=== PATIENT | male | born 1990 | race Two or more races ===

== ENCOUNTER 2017-04-28 10:14 | Emergency (ER) | payer OTHER ==
[~2017-04-28] VITALS: Ht 170.2 cm; Wt 72.6 kg
[~2017-04-28 10:14] MED LIST: MYLANTA30 M1 PO; OMEPRAZOLE20 M3 ORAL; TYLENOL650 MG/20. ORAL; ZOFRAN4 MG/5 ML ORAL
[2017-04-28 10:29] VITALS: BP 100/60
--- NOTE | 2017-04-28 11:08 | Emergency Room Report ---
History of Present Illness General Chief Complaint: Flu Like Symptoms Source: Patient Present Illness HPI Patient with sore throat, slight cough, body aches which began last night. [place] feverish. No NVD, dysuria, chest pain, rashes. Slight headache. Pain rated at 8/10, aching and diffuse, constant. No medicine taken. No with flu shot. No co-morbidities. Allergies: Coded Allergies: No Known Allergies (Unverified , 05/28/15) Patient History Past Medical History: see triage record Social History: Reports: smoking Social History Narrative at home Reviewed Nursing Documentation: PMH: Agreed, PSxH: Agreed Nursing Documentation-PMH Hx Gastrointestinal Problems: Yes - H. Pylori Review of Systems All Other Systems: negative except mentioned in HPI Physical Exam Vital Signs Date Time Temp Pulse Resp B/P (MAP) Pulse Ox O2 Delivery O2 Flow Rate FiO2 04/28/17 10:17 98.1 84 20 97/61 99 Room Air Sp02 EP Interpretation: reviewed, normal General Appearance: well appearing, no apparent distress Head: normocephalic, atraumatic Eyes: bilateral eye normal inspection, bilateral eye PERRL ENT: hearing grossly normal, normal voice, TMs + canals normal, pharyngeal erythema Neck: full range of motion, supple Respiratory: no respiratory distress, speaking full sentences Cardiovascular #1: regular rate, rhythm Cardiovascular #2: 2+ radial (R) Gastrointestinal: normal inspection, normal bowel sounds, non tender, scaphoid Musculoskeletal: back normal, digits/nails normal, normal range of motion Neurologic: alert, oriented x3, normal gait, grossly normal Psychiatric: mood/affect normal Skin: no rash Medical Decision Making Diagnostic Impression: Primary Impression: Influenza ER Course Patient with URI sy. DDx: influenza, viral syndrome, strep amongst others. Not toxic. Exam against strep. Clinically dx of influenza. Not dehydrated. Not toxic. Start Tamiflu and symptomatic treatment. Treated with tylenol here. Patient stable for outpatient observation and treatment. Last Vital Signs Date Time Temp Pulse Resp B/P (MAP) Pulse Ox O2 Delivery O2 Flow Rate FiO2 04/28/17 11:41 98.1 88 20 100/60 99 Room Air Status: improved Disposition: HOME, SELF-CARE Condition: Improved Scripts Acetaminophen (Tylenol) 325 Mg Tablet 650 MG ORAL Q6H Y for Prn Pain/Headache/Temp > 101, #20 TAB 0 Refills Prov: Shana,Remi M.D. 04/28/17 Oseltamivir Phosphate (Tamiflu) 75 Mg Capsule 75 MG ORAL TWICE A DAY, #10 CAP Prov: Remi Saldana M.D. 04/28/17 Ondansetron Odt* (ZOFRAN ODT*) 4 Mg Tab.rapdis 4 MG ORAL Q8H Y for Nausea & Vomiting, #6 TAB 0 Refills Prov: Remi Saldana M.D. 04/28/17 Remi Saldana M.D. Apr 28, 2017 11:08
[2017-04-28] MEDS ORDERED: ZOFRAN ODT4 MG ORAL (11:10)
[2017-04-28] MEDS ORDERED: TAMIFLU75 MG ORAL (11:10)
[2017-04-28] MEDS ORDERED: TYLENOL325 MG ORAL (11:10)
[2017-04-28 11:41] VITALS: BP 100/60
== END 2017-04-28 11:41 | disposition home or self-care (01) ==
LOC: EMR 11:11
DX: J11.1 Influenza due to unidentified influenza virus with other respiratory manifestations (principal); F17.200 Nicotine dependence, unspecified, uncomplicated
CPT/HCPCS: 99283

== ENCOUNTER 2018-01-03 00:47 | Emergency (ER) | payer MEDICAID, OTHER ==
[~2018-01-03] VITALS: Ht 170.2 cm; Wt 52.2 kg
[~2018-01-03 00:47] MED LIST changes: +TAMIFLU75 MG ORAL; +TYLENOL325 MG ORAL; +ZOFRAN ODT4 MG ORAL
[2018-01-03 02:00] VITALS: BP 103/56
--- NOTE | 2018-01-03 02:42 | Emergency Room Report ---
History of Present Illness General Chief Complaint: Sore Throat Source: Patient Present Illness [facility] This patient is here for generalized malaise, weakness, nausea, myalgias, emesis x one. He also wanted to tell me about irritation on his penis and irritation at anus. Not sexually active >three months. no fever, no abd pain, no cp, no sob. PMH: gi Allergies: Coded Allergies: No Known Allergies (Unverified , 05/28/15) Nursing Documentation-PMH Past Medical History: No Stated History Hx Gastrointestinal Problems: Yes - H. Pylori Review of Systems Constitutional: Reports: see HPI, malaise, weakness Eye: Reports: no symptoms ENT: Reports: no symptoms Respiratory: Reports: no symptoms Cardiovascular: Reports: no symptoms Gastrointestinal: Reports: no symptoms Genitourinary: Reports: no symptoms Musculoskeletal: Reports: no symptoms Skin: Reports: no symptoms Psychiatric: Reports: no symptoms Neurological: Reports: no symptoms Endocrine: Reports: no symptoms Hematologic/Lymphatic: Reports: no symptoms Allergic: Reports: no symptoms All Other Systems: negative except mentioned in HPI Physical Exam Vital Signs Date Time Temp Pulse Resp B/P (MAP) Pulse Ox O2 Delivery O2 Flow Rate FiO2 01/03/18 01:23 99.2 97 15 110/68 98 Room Air 99.1 Sp02 EP Interpretation: reviewed, normal General Appearance: normal inspection, well appearing, no apparent distress, alert, GCS 15, non-toxic, thin Head: normocephalic, atraumatic Eyes: bilateral eye normal inspection, bilateral eye PERRL, bilateral eye EOMI ENT: normal ENT inspection, hearing grossly normal, normal pharynx, no angioedema, normal voice, moist mucus membranes Neck: normal inspection, full range of motion, supple, no meningismus, no bony tend Respiratory: normal inspection, lungs clear, normal breath sounds, no rhonchi, no respiratory distress, no retraction, no accessory muscle use, no wheezing Cardiovascular #1: normal inspection, regular rate, rhythm, no edema Gastrointestinal: normal inspection, normal bowel sounds, non tender, soft, no mass, non-distended Rectal: other - tiny skin tag at 12 Genitourinary: other - mild abraded skin penis c/w dry masturbation Musculoskeletal: gait/station normal, normal range of motion Neurologic: normal inspection, alert, oriented x3, responsive, motor strength/ tone normal Psychiatric: normal inspection, judgement/insight normal, memory normal Suicide Risk Assessment: Suicidal Ideation: No Had intent to initiate attempt: No Pt's plan for suicide attempt: No Has means to complete attempt: No Skin: normal inspection, normal color, no rash, warm/dry Medical Decision Making Diagnostic Impression: Primary Impression: Sore throat ER Course mostly pt. needed reassurance Last Vital Signs Date Time Temp Pulse Resp B/P (MAP) Pulse Ox O2 Delivery O2 Flow Rate FiO2 01/03/18 01:23 99.2 97 15 110/68 98 Room Air 99.1 Disposition: HOME, SELF-CARE Referrals: NON PHYSICIAN (PCP) Patient Instructions: Sore Throat Rob Shin M.D. Jan 03, 2018 02:42
[2018-01-03 03:34] VITALS: BP 104/60
== END 2018-01-03 03:20 | disposition home or self-care (01) ==
LOC: EMR 02:32
DX: J02.9 Acute pharyngitis, unspecified (principal)
CPT/HCPCS: 99282

== ENCOUNTER 2018-04-25 05:31 | Emergency (ER) | payer MEDICAID, OTHER ==
[~2018-04-25] VITALS: Ht 170.2 cm; Wt 54.4 kg
[2018-04-25] MEDS ORDERED: NKM (05:36)
--- NOTE | 2018-04-25 05:40 | NUR ---
ER Nurse Note: Pt came from home c/o n/v since 04/24. Pt stated he took 8 tequila shots yesterday and felt sick since. Pt a&ox4, VSS, no signs of distress. Pt is pallor, warm to touch, no active vomiting. Bowel sounds present; pt stated "stomach feels empty". ERMD at pt side; will continue to montior.
[2018-04-25] MEDS ORDERED: Metoclopramide 10mg/2ml Inj IVP ONE (05:45)
[2018-04-25] MEDS ORDERED: DiphenhydrAMINE 50mg/ml Inj IVP ONE (05:45)
--- NOTE | 2018-04-25 05:45 | Emergency Room Report ---
History of Present Illness General Chief Complaint: Alcohol Intoxication Source: Patient (Paolo Crowe DO) Present Illness HPI Patient presents with reports of drinking too much he reports that he has had increased nausea vomiting over the night now Feels increased burning and discomfort to the epigastric region Denies any chest pain or shortness of breath Denies any lower abdominal pain Denies any diarrhea Denies any fevers however he felt some mild chills (Paolo Crowe DO) Allergies: Coded Allergies: No Known Allergies (Unverified , 05/28/15) Patient History Past Medical History: see triage record Pertinent Family History: none Reviewed Nursing Documentation: PMH: Agreed; PSxH: Agreed (Paolo Crowe DO) Nursing Documentation-PMH Past Medical History: No Stated History Hx Gastrointestinal Problems: Yes - H. Pylori (Paolo Crowe DO) Review of Systems All Other Systems: negative except mentioned in HPI (Paolo Crowe DO) Physical Exam Vital Signs Date Time Temp Pulse Resp B/P (MAP) Pulse Ox O2 Delivery O2 Flow Rate FiO2 04/25/18 05:33 98.2 69 20 125/64 98 Room Air Sp02 EP Interpretation: reviewed, normal General Appearance: no apparent distress, thin Head: normocephalic, atraumatic Eyes: bilateral eye PERRL, bilateral eye EOMI ENT: hearing grossly normal, normal pharynx Neck: supple Respiratory: lungs clear Cardiovascular #1: regular rate, rhythm Gastrointestinal: non tender, soft Genitourinary: no CVA tenderness Musculoskeletal: normal inspection Neurologic: alert, oriented x3, responsive Skin: normal color, no rash Lymphatic: no adenopathy (Paolo Crowe DO) Medical Decision Making Diagnostic Impression: Primary Impression: Acute alcoholic intoxication Qualified Codes: F10.929 - Alcohol use, unspecified with intoxication, unspecified Additional Impression: Alcoholic gastritis Qualified Codes: K29.20 - Alcoholic gastritis without bleeding ER Course With the history exam and presentation, multiple differentials considered, including but not limited to appendicitis, gastritis, alcohol intoxication, cholecystitis, diverticulitis Patient's blood work appears appropriate and baseline levels Alcohol level is fairly low as well patient has rested well throughout his stay feels improved patient does require repeat evaluation and final disposition however I do suspect likely outpatient follow-up given the patient's evaluation thus far Labs Test 04/25/18 05:30 White Blood Count 7.1 K/UL (4.8-10.8) Red Blood Count 5.23 M/UL (4.70-6.10) Hemoglobin 16.0 G/DL (14.2-18.0) Hematocrit 45.3 % (42.0-52.0) Mean Corpuscular Volume 87 FL (80-99) Mean Corpuscular Hemoglobin 30.6 PG (27.0-31.0) Mean Corpuscular Hemoglobin Concent 35.3 G/DL (32.0-36.0) Red Cell Distribution Width 10.5 % (11.6-14.8) Platelet Count 173 K/UL (150-450) Mean Platelet Volume 8.9 FL (6.5-10.1) Neutrophils (%) (Auto) 84.3 % (45.0-75.0) Lymphocytes (%) (Auto) 12.1 % (20.0-45.0) Monocytes (%) (Auto) 3.1 % (1.0-10.0) Eosinophils (%) (Auto) 0.1 % (0.0-3.0) Basophils (%) (Auto) 0.4 % (0.0-2.0) Sodium Level 145 MMOL/L (136-145) Potassium Level 4.2 MMOL/L (3.5-5.1) Chloride Level 106 MMOL/L (98-107) Carbon Dioxide Level 24 MMOL/L (21-32) Anion Gap 15 mmol/L (5-15) Blood Urea Nitrogen 16 mg/dL (7-18) Creatinine 1.1 MG/DL (0.55-1.30) Estimat Glomerular Filtration Rate > 60 mL/min (>60) Glucose Level 107 MG/DL (74-106) Calcium Level 9.8 MG/DL (8.5-10.1) Total Bilirubin 1.0 MG/DL (0.2-1.0) Aspartate Amino Transf (AST/SGOT) 26 U/L (15-37) Alanine Aminotransferase (ALT/SGPT) 45 U/L (12-78) Alkaline Phosphatase 55 U/L (46-116) Total Protein 8.0 G/DL (6.4-8.2) Albumin 4.9 G/DL (3.4-5.0) Globulin 3.1 g/dL Albumin/Globulin Ratio 1.6 (1.0-2.7) Lipase 125 U/L (73-393) Serum Alcohol 24 mg/dL (Paolo Crowe DO) ER Course Mother is present with patient. Please see above. Patient feels well now. States he was celebrating. States he has a weak stomach. Abdominal exam is benign. Mother is present with patient. Patient stable for outpatient observation and treatment. Laboratory Tests Test 04/25/18 05:30 White Blood Count 7.1 K/UL (4.8-10.8) Red Blood Count 5.23 M/UL (4.70-6.10) Hemoglobin 16.0 G/DL (14.2-18.0) Hematocrit 45.3 % (42.0-52.0) Mean Corpuscular Volume 87 FL (80-99) Mean Corpuscular Hemoglobin 30.6 PG (27.0-31.0) Mean Corpuscular Hemoglobin Concent 35.3 G/DL (32.0-36.0) Red Cell Distribution Width 10.5 % (11.6-14.8) L Platelet Count 173 K/UL (150-450) Mean Platelet Volume 8.9 FL (6.5-10.1) Neutrophils (%) (Auto) 84.3 % (45.0-75.0) H Lymphocytes (%) (Auto) 12.1 % (20.0-45.0) L Monocytes (%) (Auto) 3.1 % (1.0-10.0) Eosinophils (%) (Auto) 0.1 % (0.0-3.0) Basophils (%) (Auto) 0.4 % (0.0-2.0) Sodium Level 145 MMOL/L (136-145) Potassium Level 4.2 MMOL/L (3.5-5.1) Chloride Level 106 MMOL/L (98-107) Carbon Dioxide Level 24 MMOL/L (21-32) Anion Gap 15 mmol/L (5-15) Blood Urea Nitrogen 16 mg/dL (7-18) Creatinine 1.1 MG/DL (0.55-1.30) Estimate Glomerular Filtration Rate > 60 mL/min (>60) Glucose Level 107 MG/DL (74-106) H Calcium Level 9.8 MG/DL (8.5-10.1) Total Bilirubin 1.0 MG/DL (0.2-1.0) Aspartate Amino Transferase (AST) 26 U/L (15-37) Alanine Aminotransferase (ALT) 45 U/L (12-78) Alkaline Phosphatase 55 U/L (46-116) Total Protein 8.0 G/DL (6.4-8.2) Albumin 4.9 G/DL (3.4-5.0) Globulin 3.1 g/dL Albumin/Globulin Ratio 1.6 (1.0-2.7) Lipase 125 U/L (73-393) Serum Alcohol 24 mg/dL (Remi Saldana MD) Last Vital Signs Date Time Temp Pulse Resp B/P (MAP) Pulse Ox O2 Delivery O2 Flow Rate FiO2 04/25/18 05:33 98.2 69 20 125/64 98 Room Air Status: improved (Paolo Crowe DO) Last Vital Signs Date Time Temp Pulse Resp B/P (MAP) Pulse Ox O2 Delivery O2 Flow Rate FiO2 04/25/18 07:50 98.4 64 16 126/66 98 Room Air Status: improved (Remi Saldana MD) Disposition: HOME, SELF-CARE Condition: Improved Scripts Famotidine (PEPCID AC) 20 Mg Tablet 20 MG PO DAILY, #20 TAB Prov: Remi Saldana MD 04/25/18 Additional Instructions: Patient is provided with the discharge instructions notified to follow up with primary doctor in the next 2-3 days otherwise return to the er with any worsening symptoms. Please note that this report is being documented using [employer] technology. This can lead to erroneous entry secondary to incorrect interpretation by the dictating instrument. Paolo Crowe DO Apr 25, 2018 05:45 Remi Saldana MD Apr 25, 2018 07:44
[2018-04-25 05:55] VITALS: BP 125/64
[2018-04-25 06:08] LABS: BASOPHILS % (AUTO) 0.4 % (0.0-2.0); EOSINOPHILS % (AUTO) 0.1 % (0.0-3.0); HEMATOCRIT 45.3 % (42.0-52.0); LYMPHOCYTES % (AUTO) 12.1 % (20.0-45.0); MEAN CORPUSCULAR VOLUME 87 FL (80-99); MONOCYTES % (AUTO) 3.1 % (1.0-10.0); NEUTROPHILS % (AUTO) 84.3 % (45.0-75.0); PLATELET COUNT 173 K/UL (150-450); RED BLOOD COUNT 5.23 M/UL (4.70-6.10); RED CELL DISTRIBUTION WIDTH 10.5 % (11.6-14.8); WHITE BLOOD COUNT 7.1 K/UL (4.8-10.8)
[2018-04-25 06:14] LABS: ANION GAP 15 mmol/L (5-15); BLOOD UREA NITROGEN 16 mg/dL (7-18); CALCIUM 9.8 MG/DL (8.5-10.1); CARBON DIOXIDE 24 MMOL/L (21-32); CHLORIDE 106 MMOL/L (98-107); CREATININE 1.1 MG/DL (0.55-1.30); POTASSIUM 4.2 MMOL/L (3.5-5.1); SODIUM 145 MMOL/L (136-145)
[2018-04-25 06:25] LABS: ALANINE AMINOTRANSFERASE 45 U/L (12-78); ALBUMIN 4.9 G/DL (3.4-5.0); ALBUMIN/GLOBULIN RATIO 1.6 (1.0-2.7); ALKALINE PHOSPHATASE 55 U/L (46-116); ASPARTATE AMINO TRANSFERASE 26 U/L (15-37)
--- NOTE | 2018-04-25 07:08 | NUR ---
ER Nurse Note: Report given to ISAAC Maher to endorse continuity of care. Pt with ERMD; Pt a&ox4, VSS.
--- NOTE | 2018-04-25 07:10 | NUR ---
ED Nurse Note: REPORT RECEIVED FROM ISAAC IRAHETA. PT SLEEPING PEACEFULLY IN BED IN NAD. VSS. MOTHER REMAINS AT BEDSIDE.
[2018-04-25] MEDS ORDERED: PEPCID AC20 M2 PO (07:45)
[2018-04-25 07:50] VITALS: BP 126/66
--- NOTE | 2018-04-25 07:51 | NUR ---
ENOC [place] Note: PT LAYING PEACEFULLY IN BED IN NAD. AOX4. MOTHER AT BEDSIDE. PRESCRIPTION AND DISCHARGE PAPERWORK EXPLAINED TO PT. PT VERBALIZES UNDERSTANDING AND ALL QUESTIONS ANSWERED. PRESCRIPTION AND DISCHARGE PAPERWORK GIVEN TO PT, IV AND ID WRISTBAND REMOVED. PT WALKED OUT OF ER WITH STEADY GAIT AND ALL BELONGINGS ACCOMPANIED BY MOTHER.
== END 2018-04-25 07:50 | disposition home or self-care (01) ==
LOC: EMR 06:14
DX: F10.129 Alcohol abuse with intoxication, unspecified (principal); K29.20 Alcoholic gastritis without bleeding
CPT/HCPCS: 36415; 80053; 80329; 83690; 85025; 96361; 96374; 96375; 99284; J1200; J2765; S0028